=== PATIENT | female | born 1930 | race African-American/Black ===

== ENCOUNTER 2017-04-18 20:00 | Emergency (ER) | payer MEDICARE, MEDICAID ==
[~2017-04-18] VITALS: Ht 162.6 cm; Wt 47.0 kg
[~2017-04-18 20:00] MED LIST: ASPI-1035 PO; CARV6.2548 PO; CLON0.1T PO; HYDR25TA PO; ISOS1TAB PO; OLME40TA12 PO; PRIM50TA31 PO
[2017-04-18] MEDS ORDERED: HYDROCODONE/ACETAMINOPHEN 5/325MG TABLET PO ONE (20:30)
[2017-04-18] MEDS ORDERED: CLONIDINE 0.1MG TABLET PO ONE (20:30)
[2017-04-18 21:01] VITALS: BP 157/87
== END 2017-04-18 21:21 | disposition home or self-care (01) ==
LOC: ER 20:01
DX: K04.7 Periapical abscess without sinus (principal); I25.10 Atherosclerotic heart disease of native coronary artery without angina pectoris; I10 Essential (primary) hypertension; Z88.2 Allergy status to sulfonamides; Z95.1 Presence of aortocoronary bypass graft; Z95.0 Presence of cardiac pacemaker
CPT/HCPCS: 99283

== ENCOUNTER 2017-06-24 12:48 | Observation (INO) | payer MEDICARE, MEDICAID ==
[~2017-06-24] VITALS: Ht 162.6 cm; Wt 59.9 kg
[~2017-06-24 12:48] MED LIST changes: -ASPI-1035 PO; +ASPI-1158 PO
[2017-06-24 14:13] LABS: EOSINOPHILS % 2.5 % (0.0-5.0); HEMATOCRIT. 31.1 % (36.0-48.0); HEMOGLOBIN. 10.5 g/dL (12.0-16.0); LYMPHOCYTES % 22.2 % (20.0-50.0); MEAN CORPUSCULAR VOLUME 92.2 fL (81.0-99.0); MEAN PLATELET VOLUME 8.7 fl (7.4-10.4); MONOCYTES % 9.4 % (2.0-8.0); NEUTROPHILS % 64.9 % (40.0-76.0); PLATELET 98 x1000/uL (130-400); RED BLOOD CELL COUNT 3.38 mill/uL (4.2-5.4); RED CELL DISTRIBUTION WIDTH 13.8 % (11.6-14.6)
[2017-06-24 14:22] LABS: INR 1.1; PROTHROMBIN TIME 11.1 sec
[2017-06-24 14:25] LABS: TROPONIN I 0.03 ng/mL (0.00-0.04)
[2017-06-24] MEDS ORDERED: CEFTRIAXONE SODIUM 1 G/VIAL IM ONE (15:45)
[2017-06-24] MEDS ORDERED: DEXT 5%/0.45% NACL 1000ML 1,000 ML IV SCH (16:03)
[2017-06-24] MEDS ORDERED: ACETAMINOPHEN 325MG TABLET PO PRN (16:15)
[2017-06-24] MEDS ORDERED: ONDANSETRON HCL 4MG/2ML VIAL IV PRN (16:15)
[2017-06-24] MEDS ORDERED: HYDROCODONE/ACETAMINOPHEN 5/325MG TABLET PO PRN (16:15)
[2017-06-24] MEDS ORDERED: AMLODIPINE 10MG TABLET PO SCH (16:15)
[2017-06-24] MEDS ORDERED: IPRATROPIUM/ALBUTEROL 0.5-3(2.5)MG/3ML NEB INH PRN (16:15)
[2017-06-24] MEDS: CLONIDINE 0.1MG TABLET PO PRN (17:06)
[2017-06-24 22:00] VITALS: BP 198/100
[2017-06-24 22:06] LABS: TROPONIN I 0.05 ng/mL (0.00-0.04)
[2017-06-24 22:10] VITALS: BP 198/100
[2017-06-24] MEDS: ASPIRIN 81MG EC TABLET PO SCH (23:11)
[2017-06-24] MEDS: CARVEDILOL 6.25 MG TABLET PO SCH (23:12)
[2017-06-24] MEDS: ISOSORB DINIT/HYDRALAZINE HCL 20/37.5MG TABLET PO SCH (23:12)
[2017-06-24 23:41] VITALS: BP 198/94
[2017-06-24] MEDS ORDERED: HYDR-4134 PO (23:53)
[2017-06-24] MEDS ORDERED: ISOS30TA6 PO (23:53)
[2017-06-24] MEDS ORDERED: DONE5TAB33 PO (23:53)
[2017-06-24] MEDS ORDERED: OLME40TA12 PO (23:53)
[2017-06-24] MEDS ORDERED: ASPI-986 PO (23:53)
[2017-06-25] VITALS (9 sets, daily range): BP systolic 139–211; BP diastolic 72–100
[2017-06-25] MEDS ORDERED: CEFTRIAXONE 1 G PREMIX 50 ML IV SCH
[2017-06-25 00:21] LABS: CLARITY URINE CLEAR (CLEAR); COLOR URINE YELLOW (YELLOW); GLUCOSE URINE NEGATIVE (NEGATIVE); KETONES URINE NEGATIVE (NEGATIVE); LEUKOCYTE ESTERASE URINE NEGATIVE (NEGATIVE); NITRITE URINE NEGATIVE (NEGATIVE); OCCULT BLOOD URINE NEGATIVE (NEGATIVE); PROTEIN URINE 1+ (NEGATIVE); SPECIFIC GRAVITY URINE 1.021 (1.005-1.030); UROBILINOGEN URINE 0.2 E.U./dL (0.2-1.0)
[2017-06-25] MEDS: CLONIDINE 0.1MG TABLET PO PRN ×3 (05:43→17:33)
[2017-06-25] MEDS: ISOSORB DINIT/HYDRALAZINE HCL 20/37.5MG TABLET PO SCH ×2 (05:45→13:44)
[2017-06-25 06:02] LABS: EOSINOPHILS % 3.8 % (0.0-5.0); HEMATOCRIT. 29.9 % (36.0-48.0); HEMOGLOBIN. 10.1 g/dL (12.0-16.0); LYMPHOCYTES % 33.7 % (20.0-50.0); MEAN CORPUSCULAR HEMOGLOBIN 31.4 pg (28.0-32.0); MEAN CORPUSCULAR VOLUME 92.6 fL (81.0-99.0); MEAN PLATELET VOLUME 8.7 fl (7.4-10.4); MONOCYTES % 12.4 % (2.0-8.0); NEUTROPHILS % 49.1 % (40.0-76.0); PLATELET 94 x1000/uL (130-400); RED BLOOD CELL COUNT 3.23 mill/uL (4.2-5.4); RED CELL DISTRIBUTION WIDTH 13.7 % (11.6-14.6)
[2017-06-25 06:31] LABS: T4 FREE 0.78 ng/dL (0.76-1.46)
[2017-06-25 06:40] LABS: TROPONIN I 0.05 ng/mL (0.00-0.04)
[2017-06-25] MEDS ORDERED: ENOXAPARIN 40MG/0.4ML SYR SUBCUT SCH (09:00)
[2017-06-25] MEDS: CARVEDILOL 6.25 MG TABLET PO SCH (09:21)
[2017-06-25] MEDS: ASPIRIN 81MG EC TABLET PO SCH (09:39)
[2017-06-25] MEDS ORDERED: LOSARTAN POTASSIUM 50 MG TABLET PO NR (19:45)
[2017-06-25] MEDS ORDERED: ATORVASTATIN CALCIUM 10MG TABLET PO SCH (21:00)
== END 2017-06-25 22:05 | disposition home or self-care (01) ==
LOC: ER 12:48 → 6WST 15:36 → INTOOBSV 15:36 → EDBEDREQ 15:51 → ENRESERV 20:25 → 6WST 22:53
PROVIDERS: ADMIT Internal Medicine; ATTEND Internal Medicine
DX: R53.1 Weakness (principal); R55 Syncope and collapse; I16.0 Hypertensive urgency; R63.8 Other symptoms and signs concerning food and fluid intake; E78.00 Pure hypercholesterolemia, unspecified; I11.0 Hypertensive heart disease with heart failure; I25.10 Atherosclerotic heart disease of native coronary artery without angina pectoris; I25.5 Ischemic cardiomyopathy; I50.9 Heart failure, unspecified; I65.29 Occlusion and stenosis of unspecified carotid artery; I70.1 Atherosclerosis of renal artery; I73.9 Peripheral vascular disease, unspecified; N28.9 Disorder of kidney and ureter, unspecified; Z86.73 Personal history of transient ischemic attack (TIA), and cerebral infarction without residual deficits; Z95.0 Presence of cardiac pacemaker; Z95.1 Presence of aortocoronary bypass graft; Z95.5 Presence of coronary angioplasty implant and graft
CPT/HCPCS: 36415; 71010; 78582; 80048; 80061; 81001; 82550; 83735; 83880; 84439; 84443; 84484; 85025; 85379; 85610; 87077; 87086; 87186; 93005; 93306; 93880; 93970; 96361; 96365; 99285; A9540; A9558; G0378; J0696

== ENCOUNTER 2017-12-28 12:13 | Observation (INO) | payer MEDICARE, MEDICAID ==
[~2017-12-28] VITALS: Ht 165.1 cm; Wt 59.9 kg
[~2017-12-28 12:13] MED LIST changes: +ASPI-986 PO; +DONE5TAB33 PO; +HYDR-4134 PO; +ISOS30TA6 PO
[2017-12-28] MEDS ORDERED: NITROGLYCERIN OINT 1GM/INCH UDPKT TD STA (12:47)
[2017-12-28] MEDS ORDERED: ASPIRIN 81MG TABLET PO STA (12:47)
[2017-12-28] MEDS ORDERED: SODIUM CHLORIDE 0.9% 1000ML BAG (SEPSIS BOLUS) IV ONE (13:00)
[2017-12-28] MEDS ORDERED: ADENOSINE 3 MG/ML 2ML VIAL IV ONE ×2 (13:00)
[2017-12-28] MEDS ORDERED: OSELTAMIVIR 75MG CAPSULE PO ONE (13:15)
[2017-12-28] MEDS ORDERED: METOPROLOL TARTRATE 25MG TABLET PO ONE (13:15)
[2017-12-28 13:30] LABS: BASOPHILS % 0.9 % (0.0-2.0); EOSINOPHILS % 2.4 % (0.0-5.0); HEMATOCRIT. 35.1 % (36.0-48.0); HEMOGLOBIN. 11.6 g/dL (12.0-16.0); LYMPHOCYTES % 29.1 % (20.0-50.0); MEAN CORPUSCULAR HEMOGLOBIN 30.8 pg (28.0-32.0); MEAN CORPUSCULAR VOLUME 93.1 fL (81.0-99.0); MEAN PLATELET VOLUME 8.3 fl (7.4-10.4); MONOCYTES % 10.8 % (2.0-8.0); NEUTROPHILS % 56.8 % (40.0-76.0); PLATELET 126 x1000/uL (130-400); RED BLOOD CELL COUNT 3.77 mill/uL (4.2-5.4); RED CELL DISTRIBUTION WIDTH 13.8 % (11.6-14.6)
[2017-12-28 13:39] LABS: INR 1.1; PARTIAL THROMBOPLASTIN TIME 25.7 sec (23.4-31.0)
[2017-12-28 13:41] LABS: CHLORIDE 109 mEq/L (98-107)
[2017-12-28 13:46] LABS: TROPONIN I 0.71 ng/mL (0.00-0.04)
[2017-12-28 13:47] LABS: D-DIMER 5.23 mg/L FEU (<0.50)
[2017-12-28] MEDS ORDERED: ENOXAPARIN 80MG/0.8ML SYR SUBCUT ONE (14:15)
[2017-12-28] MEDS ORDERED: CLONIDINE 0.2MG TABLET PO ONE (15:15)
[2017-12-28] MEDS ORDERED: IPRATROPIUM BROMIDE (0.02%) 0.5MG/2.5ML NEB HHN STA (15:31)
[2017-12-28] MEDS ORDERED: ALBUTEROL (0.083%) 2.5MG/3ML NEB HHN STA (15:31)
[2017-12-28] MEDS ORDERED: FUROSEMIDE 40MG/4ML VIAL IVP ONE (16:15)
[2017-12-28 17:00] VITALS: BP 151/78
[2017-12-28] MEDS ORDERED: EZET10TA26 PO (18:10)
[2017-12-28] MEDS ORDERED: ISOS1TAB PO (18:14)
[2017-12-28 18:28] VITALS: BP 151/76
[2017-12-28] MEDS ORDERED: HYDROCODONE/ACETAMINOPHEN 5/325MG TABLET PO PRN (19:00)
[2017-12-28] MEDS ORDERED: TEMAZEPAM 15MG CAPSULE PO PRN (19:15)
[2017-12-28] MEDS: PANTOPRAZOLE 40MG DR TABLET PO SCH (19:50)
[2017-12-28] MEDS: FUROSEMIDE 40MG/4ML VIAL IVP SCH (19:50)
[2017-12-28 20:00] VITALS: BP 163/86
[2017-12-28] MEDS: ENOXAPARIN 30MG/0.3ML SYR SUBCUT SCH (20:11)
[2017-12-28] MEDS: CARVEDILOL 6.25 MG TABLET PO SCH (20:12)
[2017-12-28] MEDS: HYDRALAZINE HCL 50MG TABLET PO SCH (20:12)
[2017-12-28] MEDS: LOSARTAN POTASSIUM 50 MG TABLET PO SCH (20:13)
[2017-12-28] MEDS: ATORVASTATIN CALCIUM 20MG TABLET PO SCH (20:13)
[2017-12-28] MEDS: ALBUTEROL (0.083%) 2.5MG/3ML NEB HHN SCH (22:04)
[2017-12-29] VITALS: BP 167/84
[2017-12-29] MEDS: ALBUTEROL (0.083%) 2.5MG/3ML NEB HHN SCH ×6 (01:02→21:25)
[2017-12-29 04:00] VITALS: BP 169/88
[2017-12-29] MEDS: PANTOPRAZOLE 40MG DR TABLET PO SCH (06:20)
[2017-12-29 07:13] LABS: BASOPHILS % 0.9 % (0.0-2.0); HEMATOCRIT. 31.7 % (36.0-48.0); HEMOGLOBIN. 10.8 g/dL (12.0-16.0); LYMPHOCYTES % 30.9 % (20.0-50.0); MEAN CORPUSCULAR HEMOGLOBIN 31.8 pg (28.0-32.0); MEAN CORPUSCULAR VOLUME 93.2 fL (81.0-99.0); MONOCYTES % 14.8 % (2.0-8.0); NEUTROPHILS % 50.4 % (40.0-76.0); PLATELET 111 x1000/uL (130-400); RED BLOOD CELL COUNT 3.41 mill/uL (4.2-5.4); RED CELL DISTRIBUTION WIDTH 13.8 % (11.6-14.6)
[2017-12-29 08:00] VITALS: BP 172/96
[2017-12-29] MEDS: LOSARTAN POTASSIUM 50 MG TABLET PO SCH ×2 (08:14→16:05)
[2017-12-29] MEDS: CARVEDILOL 6.25 MG TABLET PO SCH (08:14)
[2017-12-29] MEDS: ASPIRIN 81MG TABLET PO SCH (08:20)
[2017-12-29 08:53] LABS: CHLORIDE 108 mEq/L (98-107); HDL CHOLESTEROL 81 mg/dL (40-59); LDL CHOLESTEROL 113 mg/dL (5-100)
[2017-12-29] MEDS: FUROSEMIDE 40MG/4ML VIAL IVP SCH (09:17)
[2017-12-29] MEDS: HYDRALAZINE HCL 50MG TABLET PO SCH ×2 (09:17→20:28)
[2017-12-29 09:59] LABS: TROPONIN I 0.51 ng/mL (0.00-0.04)
[2017-12-29 12:00] VITALS: BP 146/81
[2017-12-29 15:56] VITALS: BP 186/93
[2017-12-29] MEDS ORDERED: CLONIDINE 0.2MG TABLET PO PRN (19:45)
[2017-12-29 20:00] VITALS: BP 184/99
[2017-12-29] MEDS: CARVEDILOL 12.5MG TABLET PO SCH (20:28)
[2017-12-29] MEDS: ATORVASTATIN CALCIUM 20MG TABLET PO SCH (20:28)
[2017-12-29] MEDS: ENOXAPARIN 30MG/0.3ML SYR SUBCUT SCH (20:30)
[2017-12-30] VITALS: BP 168/85
[2017-12-30] MEDS: ALBUTEROL (0.083%) 2.5MG/3ML NEB HHN SCH ×4 (00:45→12:45)
[2017-12-30 04:00] VITALS: BP 182/100
[2017-12-30] MEDS: HYDRALAZINE HCL 50MG TABLET PO SCH (08:12)
[2017-12-30] MEDS: CARVEDILOL 12.5MG TABLET PO SCH (08:13)
[2017-12-30] MEDS: LOSARTAN POTASSIUM 50 MG TABLET PO SCH (08:13)
[2017-12-30 08:19] VITALS: BP 101/60
[2017-12-30 08:38] VITALS: BP 128/74
[2017-12-30] MEDS: FUROSEMIDE 40MG/4ML VIAL IVP SCH (08:41)
[2017-12-30] MEDS: ASPIRIN 81MG TABLET PO SCH (08:42)
[2017-12-30] MEDS ORDERED: AMIODARONE HCL 200 MG TABLET PO SCH (09:00)
[2017-12-30] MEDS ORDERED: FAMOTIDINE 20MG TABLET PO SCH (09:00)
[2017-12-30 12:15] VITALS: BP 103/61
[2017-12-30 12:41] VITALS: BP 103/61
== END 2017-12-30 15:15 | disposition home or self-care (01) ==
LOC: ER 12:35 → 8WST 14:23 → INTOOBSV 14:23 → EDBEDREQ 14:27 → ENRESERV 15:57
PROVIDERS: ADMIT Internal Medicine; ATTEND Internal Medicine
DX: I25.10 Atherosclerotic heart disease of native coronary artery without angina pectoris (principal); I11.0 Hypertensive heart disease with heart failure; I50.9 Heart failure, unspecified; I25.5 Ischemic cardiomyopathy; E78.5 Hyperlipidemia, unspecified; R62.7 Adult failure to thrive; I48.91 Unspecified atrial fibrillation; Z95.0 Presence of cardiac pacemaker; Z95.1 Presence of aortocoronary bypass graft; Z95.810 Presence of automatic (implantable) cardiac defibrillator
CPT/HCPCS: 36415; 71045; 71275; 80053; 80061; 83605; 83880; 84443; 84484; 85025; 85379; 85610; 85730; 87040; 87804; 93005; 94640; 94664; 96361; 96372; 96374; 96375; 96376; 99291; G0378; J0153; J1650; J1940; J7030; J7611; Q9967

== ENCOUNTER 2018-03-09 12:25 | Inpatient (IN) | payer MEDICARE, MEDICAID ==
[~2018-03-09] VITALS: Ht 165.1 cm; Wt 66.3 kg
[~2018-03-09 12:25] MED LIST changes: -ASPI-1158 PO; +EZET10TA26 PO; -HYDR25TA PO
[2018-03-09] MEDS ORDERED: SODIUM CHLORIDE 0.9% 1,000 ML IV ONE (13:01)
[2018-03-09 13:24] LABS: BASOPHILS % 0.9 % (0.0-2.0); EOSINOPHILS % 2.6 % (0.0-5.0); HEMATOCRIT. 33.5 % (36.0-48.0); HEMOGLOBIN. 11.5 g/dL (12.0-16.0); LYMPHOCYTES % 23.2 % (20.0-50.0); MEAN CORPUSCULAR HEMOGLOBIN 31.9 pg (28.0-32.0); MEAN CORPUSCULAR VOLUME 92.7 fL (81.0-99.0); MEAN PLATELET VOLUME 8.3 fl (7.4-10.4); MONOCYTES % 8.4 % (2.0-8.0); NEUTROPHILS % 64.9 % (40.0-76.0); PLATELET 128 x1000/uL (130-400); RED BLOOD CELL COUNT 3.61 mill/uL (4.2-5.4)
[2018-03-09 13:26] LABS: CHLORIDE 108 mEq/L (98-107)
[2018-03-09 13:28] LABS: INR 1.1; PARTIAL THROMBOPLASTIN TIME 25.3 sec (23.4-31.0); PROTHROMBIN TIME 11.3 sec (9.4-11.6)
[2018-03-09 13:37] LABS: CREATINE KINASE MB FRACTION 1.3 ng/mL (0.5-3.6)
[2018-03-09] MEDS ORDERED: FURO40TA5 PO (14:05)
[2018-03-09] MEDS ORDERED: FAMO20TA8 PO (14:06)
[2018-03-09] MEDS ORDERED: AMIO100T4 PO (14:07)
[2018-03-09] MEDS ORDERED: LEVOFLOXACIN 750MG PREMIX 150 ML IV ONE (14:45)
[2018-03-09] MEDS ORDERED: ASPIRIN 325MG EC TABLET PO ONE (14:45)
[2018-03-09] MEDS ORDERED: CLONIDINE 0.1MG TABLET PO PRN (15:15)
[2018-03-09] MEDS ORDERED: ACETAMINOPHEN 325MG TABLET PO PRN (16:00)
[2018-03-09] MEDS ORDERED: MORPHINE SULFATE 4 MG/ML CPJ (NOT FOR IM USE) IV PRN (16:00)
[2018-03-09] MEDS ORDERED: DIPHENHYDRAMINE 50MG/ML VIAL IV PRN (16:00)
[2018-03-09] MEDS ORDERED: DOCUSATE SODIUM 100MG CAPSULE PO PRN (16:00)
[2018-03-09] MEDS ORDERED: TRAMADOL 50MG TABLET PO PRN (16:00)
[2018-03-09] MEDS ORDERED: GUAIFENESIN 200MG/10ML SUGAR FREE UDC PO PRN (16:00)
[2018-03-09] MEDS ORDERED: NITROGLYCERIN 0.4MG TABLET SL SL PRN (16:00)
[2018-03-09] MEDS ORDERED: MAGNESIUM/ALUMINUM HYDROXIDE/SIMETHICONE 30ML UDC PO PRN (16:00)
[2018-03-09] MEDS ORDERED: IPRATROPIUM/ALBUTEROL 0.5-3(2.5)MG/3ML NEB INH PRN (16:00)
[2018-03-09] MEDS ORDERED: NA PHOS,M-B/NA PHOS,DI-BA ENEMA 118ML PR PRN (16:00)
[2018-03-09] MEDS ORDERED: ZOLPIDEM TARTRATE 5MG TABLET PO PRN (16:00)
[2018-03-09] MEDS ORDERED: ONDANSETRON HCL 4MG/2ML VIAL IV PRN (16:00)
[2018-03-09 17:08] LABS: VITAMIN B12 SERUM 133 pg/mL (211-911)
[2018-03-09 17:10] LABS: FOLIC ACID (FOLATE) SERUM > 20.00 ng/mL (>5.38)
[2018-03-09 17:17] LABS: CLARITY URINE CLOUDY (CLEAR); COLOR URINE YELLOW (YELLOW); KETONES URINE NEGATIVE (NEGATIVE); LEUKOCYTE ESTERASE URINE TRACE (NEGATIVE); NITRITE URINE NEGATIVE (NEGATIVE); OCCULT BLOOD URINE NEGATIVE (NEGATIVE); PROTEIN URINE NEGATIVE (NEGATIVE); SPECIFIC GRAVITY URINE 1.018 (1.005-1.030); UROBILINOGEN URINE 0.2 E.U./dL (0.2-1.0)
[2018-03-09 17:25] LABS: *AMPHETAMINES SCREEN URINE NEGATIVE (NEGATIVE); *BARBITURATES SCREEN URINE PRESUMTIVE POSITIVE (NEGATIVE); *BENZODIAZEPINES SCREEN URINE NEGATIVE (NEGATIVE); *COCAINE SCREEN URINE NEGATIVE (NEGATIVE)
[2018-03-09 17:26] LABS: CANNABINOID URINE SCREEN NEGATIVE (NEGATIVE); METHADONE URINE SCREEN NEGATIVE (NEGATIVE); OPIATES URINE SCREEN NEGATIVE (NEGATIVE); PHENCYCLIDINE URINE SCREEN NEGATIVE (NEGATIVE)
[2018-03-09] MEDS: CLONIDINE 0.1MG TABLET PO PRN (18:18)
[2018-03-09 22:00] VITALS: BP 156/91
[2018-03-09 22:10] VITALS: BP 156/91
[2018-03-09] MEDS: DONEPEZIL HCL 10MG TABLET PO SCH (22:55)
[2018-03-09] MEDS: CARVEDILOL 6.25 MG TABLET PO SCH (22:55)
[2018-03-10] VITALS: BP_SYST 142; BP_SYST 143; BP_DIAS 73
[2018-03-10 00:05] LABS: CREATINE KINASE MB FRACTION 1.4 ng/mL (0.5-3.6)
[2018-03-10 04:00] VITALS: BP 185/85
[2018-03-10] MEDS: CLONIDINE 0.1MG TABLET PO PRN (05:37)
[2018-03-10 08:00] VITALS: BP 185/84
[2018-03-10] MEDS: CARVEDILOL 6.25 MG TABLET PO SCH ×2 (09:28→16:04)
[2018-03-10] MEDS: ENOXAPARIN 30MG/0.3ML SYR SUBCUT SCH (09:28)
[2018-03-10] MEDS: AMIODARONE HCL 200 MG TABLET PO SCH (09:28)
[2018-03-10] MEDS: EZETIMIBE 10MG TABLET PO SCH (09:28)
[2018-03-10] MEDS: FAMOTIDINE 20MG TABLET PO SCH (09:30)
[2018-03-10] MEDS: ASPIRIN 325MG TABLET PO SCH (09:32)
[2018-03-10 12:00] VITALS: BP_SYST 143; BP_SYST 157; BP_SYST 162; BP_DIAS 72; BP_DIAS 75
[2018-03-10 16:00] VITALS: BP_SYST 186; BP_SYST 187; BP_SYST 191; BP_DIAS 85; BP_DIAS 86; BP_DIAS 90
[2018-03-10] MEDS: LOSARTAN POTASSIUM 50 MG TABLET PO SCH (16:04)
[2018-03-10 16:23] LABS: BASOPHILS % 0.9 % (0.0-2.0); EOSINOPHILS % 3.2 % (0.0-5.0); HEMATOCRIT. 33.4 % (36.0-48.0); HEMOGLOBIN. 11.4 g/dL (12.0-16.0); LYMPHOCYTES % 28.7 % (20.0-50.0); MEAN CORPUSCULAR HEMOGLOBIN 31.9 pg (28.0-32.0); MEAN CORPUSCULAR VOLUME 93.5 fL (81.0-99.0); MEAN PLATELET VOLUME 8.5 fl (7.4-10.4); MONOCYTES % 14.5 % (2.0-8.0); NEUTROPHILS % 52.7 % (40.0-76.0); PLATELET 115 x1000/uL (130-400); RED BLOOD CELL COUNT 3.57 mill/uL (4.2-5.4); RED CELL DISTRIBUTION WIDTH 14.1 % (11.6-14.6)
[2018-03-10 20:00] VITALS: BP 197/101
[2018-03-10] MEDS: DONEPEZIL HCL 10MG TABLET PO SCH (22:22)
[2018-03-11] VITALS: BP 172/85
[2018-03-11 04:00] VITALS: BP 170/76
[2018-03-11 07:33] LABS: BASOPHILS % 0.8 % (0.0-2.0); EOSINOPHILS % 3.9 % (0.0-5.0); HEMOGLOBIN. 10.6 g/dL (12.0-16.0); LYMPHOCYTES % 30.9 % (20.0-50.0); MEAN CORPUSCULAR HEMOGLOBIN 31.8 pg (28.0-32.0); MEAN CORPUSCULAR VOLUME 92.6 fL (81.0-99.0); MEAN PLATELET VOLUME 8.9 fl (7.4-10.4); MONOCYTES % 13.5 % (2.0-8.0); NEUTROPHILS % 50.9 % (40.0-76.0); PLATELET 100 x1000/uL (130-400); RED BLOOD CELL COUNT 3.35 mill/uL (4.2-5.4); RED CELL DISTRIBUTION WIDTH 14.1 % (11.6-14.6)
[2018-03-11 08:00] VITALS: BP_SYST 191; BP_SYST 199; BP_SYST 209; BP_DIAS 83; BP_DIAS 86; BP_DIAS 87
[2018-03-11] MEDS: AMIODARONE HCL 200 MG TABLET PO SCH (09:16)
[2018-03-11] MEDS: CARVEDILOL 6.25 MG TABLET PO SCH (09:16)
[2018-03-11] MEDS: LOSARTAN POTASSIUM 50 MG TABLET PO SCH (09:17)
[2018-03-11] MEDS: ASPIRIN 325MG TABLET PO SCH (09:17)
[2018-03-11] MEDS: EZETIMIBE 10MG TABLET PO SCH (09:17)
[2018-03-11] MEDS: FAMOTIDINE 20MG TABLET PO SCH (09:21)
[2018-03-11] MEDS: ENOXAPARIN 30MG/0.3ML SYR SUBCUT SCH (09:22)
[2018-03-11] MEDS: CLONIDINE 0.1MG TABLET PO PRN (11:32)
[2018-03-11 12:00] VITALS: BP 169/96
[2018-03-11 12:27] VITALS: BP 112/65
== END 2018-03-11 13:30 | disposition home or self-care (01) | DRG 73 ==
LOC: ER 12:38 → 5WST 14:46 → EDBEDREQ 14:50 → SUPCPDRO 15:47 → ENRESERV 20:49
PROVIDERS: ADMIT Internal Medicine; ATTEND Internal Medicine
DX: G90.8 Other disorders of autonomic nervous system (principal); N17.0 Acute kidney failure with tubular necrosis; N39.0 Urinary tract infection, site not specified; D63.8 Anemia in other chronic diseases classified elsewhere; I11.0 Hypertensive heart disease with heart failure; I50.9 Heart failure, unspecified; R62.7 Adult failure to thrive; E78.00 Pure hypercholesterolemia, unspecified; E78.5 Hyperlipidemia, unspecified; F03.90 Unspecified dementia, unspecified severity, without behavioral disturbance, psychotic disturbance, mood disturbance, and anxiety; I25.10 Atherosclerotic heart disease of native coronary artery without angina pectoris; I25.5 Ischemic cardiomyopathy; I70.1 Atherosclerosis of renal artery; I73.9 Peripheral vascular disease, unspecified; Z86.73 Personal history of transient ischemic attack (TIA), and cerebral infarction without residual deficits; Z90.710 Acquired absence of both cervix and uterus; Z95.1 Presence of aortocoronary bypass graft; Z95.810 Presence of automatic (implantable) cardiac defibrillator; Z88.2 Allergy status to sulfonamides; Z79.82 Long term (current) use of aspirin; Z79.899 Other long term (current) drug therapy; Z82.49 Family history of ischemic heart disease and other diseases of the circulatory system
CPT/HCPCS: 36415; 70450; 71045; 76770; 80048; 80053; 80061; 80305; 81003; 82550; 82553; 82607; 82746; 83036; 83540; 83550; 83605; 83735; 83880; 84484; 85025; 85610; 85730; 87040; 87086; 93005; 93306; 93970; 97162; 97166; J1650; J1956; J7030

== ENCOUNTER 2018-10-15 12:34 | Emergency (ER) | payer MEDICARE, MEDICAID ==
[~2018-10-15] VITALS: Ht 162.6 cm; Wt 58.0 kg
[~2018-10-15 12:34] MED LIST changes: +AMIO100T4 PO; +FAMO20TA8 PO; +FURO40TA5 PO; +OLME40TA11 PO; -OLME40TA12 PO
[2018-10-15] MEDS ORDERED: ONDANSETRON HCL 4MG/2ML INJ IV NR (13:13)
[2018-10-15] MEDS ORDERED: SODIUM CHLORIDE 0.9% 1,000 ML IV NR (13:13)
[2018-10-15] MEDS ORDERED: MORPHINE SULFATE 4 MG/ML CPJ (NOT FOR IM USE) IV NR (13:13)
[2018-10-15 14:39] LABS: CLARITY URINE CLOUDY (CLEAR); COLOR URINE YELLOW (YELLOW); KETONES URINE NEGATIVE (NEGATIVE); LEUKOCYTE ESTERASE URINE 1+ (NEGATIVE); NITRITE URINE NEGATIVE (NEGATIVE); OCCULT BLOOD URINE NEGATIVE (NEGATIVE); PROTEIN URINE NEGATIVE (NEGATIVE); SPECIFIC GRAVITY URINE 1.006 (1.005-1.030); UROBILINOGEN URINE 0.2 E.U./dL (0.2-1.0)
[2018-10-15 15:40] LABS: BASOPHILS % 0.9 % (0.0-2.0); EOSINOPHILS % 1.5 % (0.0-5.0); HEMATOCRIT. 35.6 % (36.0-48.0); LYMPHOCYTES % 19.9 % (20.0-50.0); MEAN CORPUSCULAR HEMOGLOBIN 32.1 pg (28.0-32.0); MEAN CORPUSCULAR VOLUME 94.9 fL (81.0-99.0); MEAN PLATELET VOLUME 9.2 fl (7.4-10.4); MONOCYTES % 8.8 % (2.0-8.0); NEUTROPHILS % 68.9 % (40.0-76.0); PLATELET 125 x1000/uL (130-400); RED BLOOD CELL COUNT 3.75 mill/uL (4.2-5.4); RED CELL DISTRIBUTION WIDTH 13.9 % (11.6-14.6)
[2018-10-15 15:48] LABS: CHLORIDE 106 mEq/L (98-107)
[2018-10-15] MEDS ORDERED: CEFTRIAXONE 2 G PREMIX 50 ML IV ONE (16:30)
[2018-10-15] MEDS ORDERED: ACETAMINOPHEN 325MG TABLET PO ONE (16:30)
[2018-10-15] MEDS ORDERED: HYDRALAZINE 20MG/ML VIAL IV NR (18:31)
[2018-10-15 19:41] VITALS: BP 152/67
[2018-10-15] MEDS ORDERED: HYDRALAZINE 20MG/ML VIAL IV PRN (22:00)
== END 2018-10-15 19:43 | disposition short-term general hospital (02) ==
LOC: ER 12:34 → EDBEDREQ 17:08 → SUPCPDRO 17:24 → ER 19:43 → ENRESERV 20:19 → CANBEDREQ 10-16 10:07
DX: R53.1 Weakness (principal); N12 Tubulo-interstitial nephritis, not specified as acute or chronic; R10.9 Unspecified abdominal pain; I11.0 Hypertensive heart disease with heart failure; I50.9 Heart failure, unspecified; I25.10 Atherosclerotic heart disease of native coronary artery without angina pectoris; Z88.2 Allergy status to sulfonamides; Z95.0 Presence of cardiac pacemaker; Z95.1 Presence of aortocoronary bypass graft; Z79.82 Long term (current) use of aspirin
CPT/HCPCS: 36415; 71045; 74176; 80053; 81003; 83605; 83880; 84145; 84484; 85025; 87040; 87086; 93005; 96365; 96375; 99285; J0360; J0696; J2405; J2270

== ENCOUNTER 2018-12-10 22:34 | Inpatient (IN) | payer MEDICARE, MEDICAID ==
[~2018-12-10] VITALS: Ht 165.1 cm; Wt 65.8 kg
[2018-12-10] MEDS ORDERED: MORPHINE SULFATE 4 MG/ML CPJ (NOT FOR IM USE) IV STA (23:06)
[2018-12-10 23:50] LABS: HEMATOCRIT. 33.6 % (36.0-48.0); HEMOGLOBIN. 11.3 g/dL (12.0-16.0); LYMPHOCYTES % 24.6 % (20.0-50.0); MEAN CORPUSCULAR HEMOGLOBIN 31.8 pg (28.0-32.0); MEAN CORPUSCULAR VOLUME 94.7 fL (81.0-99.0); MEAN PLATELET VOLUME 8.9 fl (7.4-10.4); MONOCYTES % 11.8 % (2.0-8.0); NEUTROPHILS % 60.6 % (40.0-76.0); PLATELET 117 x1000/uL (130-400); RED BLOOD CELL COUNT 3.55 mill/uL (4.2-5.4); RED CELL DISTRIBUTION WIDTH 14.3 % (11.6-14.6)
[2018-12-10 23:53] LABS: PROTHROMBIN TIME 10.5 sec (9.1-11.1)
[2018-12-10 23:55] LABS: CHLORIDE 103 mEq/L (98-107)
[2018-12-11] MEDS ORDERED: MORPHINE SULFATE 4 MG/ML CPJ (NOT FOR IM USE) IV ONE (00:30)
[2018-12-11 01:08] LABS: CLARITY URINE CLEAR (CLEAR); COLOR URINE YELLOW (YELLOW); KETONES URINE NEGATIVE (NEGATIVE); LEUKOCYTE ESTERASE URINE NEGATIVE (NEGATIVE); NITRITE URINE NEGATIVE (NEGATIVE); OCCULT BLOOD URINE NEGATIVE (NEGATIVE); PH URINE 5.5 (4.5-8.0); PROTEIN URINE NEGATIVE (NEGATIVE); SPECIFIC GRAVITY URINE 1.014 (1.005-1.030); UROBILINOGEN URINE 0.2 E.U./dL (0.2-1.0)
[2018-12-11] MEDS ORDERED: CARVEDILOL 6.25 MG TABLET PO ONE (01:30)
[2018-12-11 04:17] VITALS: BP 156/62
[2018-12-11 08:00] VITALS: BP 139/61
[2018-12-11] MEDS: MORPHINE SULFATE 4 MG/ML CPJ (NOT FOR IM USE) IV PRN (09:56)
[2018-12-11 12:00] VITALS: BP 131/48
[2018-12-11] MEDS ORDERED: GUAIFENESIN 200MG/10ML SUGAR FREE UDC PO PRN (12:00)
[2018-12-11] MEDS ORDERED: ONDANSETRON HCL 4MG/2ML INJ IV PRN (12:00)
[2018-12-11] MEDS ORDERED: DOCUSATE SODIUM 100MG CAPSULE PO PRN (12:00)
[2018-12-11] MEDS ORDERED: ENOXAPARIN 40MG/0.4ML SYR SUBCUT SCH (12:00)
[2018-12-11] MEDS ORDERED: MAGNESIUM/ALUMINUM HYDROXIDE/SIMETHICONE 30ML UDC PO PRN (12:00)
[2018-12-11] MEDS ORDERED: IPRATROPIUM/ALBUTEROL 0.5-3(2.5)MG/3ML NEB INH PRN (12:00)
[2018-12-11] MEDS ORDERED: ACETAMINOPHEN 650MG SUPP PR PRN (12:00)
[2018-12-11] MEDS ORDERED: ACETAMINOPHEN 650MG/20.3ML UDC GT PRN (12:00)
[2018-12-11] MEDS: SODIUM CHLORIDE 0.9% 1,000 ML IV SCH (12:15)
[2018-12-11] MEDS: ENOXAPARIN 30MG/0.3ML SYR SUBCUT SCH (12:52)
[2018-12-11] MEDS: SODIUM CHLORIDE 0.9% INJ 3ML FLUSH IVF SCH ×2 (12:53→22:36)
[2018-12-11] MEDS ORDERED: AMIODARONE HCL 100 MG PO SCH (13:30)
[2018-12-11] MEDS: AMIODARONE HCL 200 MG TABLET PO SCH (14:23)
[2018-12-11] MEDS: HYDROCODONE/ACETAMINOPHEN 10/325MG TABLET PO PRN ×3 (14:23→22:37)
[2018-12-11] MEDS: EZETIMIBE 10MG TABLET PO SCH (14:24)
[2018-12-11] MEDS: CARVEDILOL 6.25 MG TABLET PO SCH ×2 (14:24→22:30)
[2018-12-11 15:44] LABS: CLARITY URINE CLEAR (CLEAR); COLOR URINE YELLOW (YELLOW); KETONES URINE NEGATIVE (NEGATIVE); LEUKOCYTE ESTERASE URINE 1+ (NEGATIVE); NITRITE URINE NEGATIVE (NEGATIVE); OCCULT BLOOD URINE NEGATIVE (NEGATIVE); PROTEIN URINE NEGATIVE (NEGATIVE); SPECIFIC GRAVITY URINE 1.017 (1.005-1.030); UROBILINOGEN URINE 0.2 E.U./dL (0.2-1.0)
[2018-12-11 16:00] VITALS: BP 149/57
[2018-12-11] MEDS ORDERED: SODIUM CHLORIDE 0.9% 1,000 ML IV SCH (16:30)
[2018-12-11 16:54] LABS: BASOPHILS % 0.6 % (0.0-2.0); EOSINOPHILS % 1.3 % (0.0-5.0); HEMATOCRIT. 27.7 % (36.0-48.0); HEMOGLOBIN. 9.3 g/dL (12.0-16.0); LYMPHOCYTES % 15.3 % (20.0-50.0); MEAN CORPUSCULAR HEMOGLOBIN 31.9 pg (28.0-32.0); MEAN CORPUSCULAR VOLUME 94.7 fL (81.0-99.0); MEAN PLATELET VOLUME 9.4 fl (7.4-10.4); MONOCYTES % 12.2 % (2.0-8.0); NEUTROPHILS % 70.6 % (40.0-76.0); PLATELET 85 x1000/uL (130-400); RED BLOOD CELL COUNT 2.92 mill/uL (4.2-5.4); RED CELL DISTRIBUTION WIDTH 14.3 % (11.6-14.6)
[2018-12-11 17:00] LABS: CHLORIDE 105 mEq/L (98-107)
[2018-12-11] MEDS: PRIMIDONE 50MG TABLET PO SCH (17:31)
[2018-12-11 20:00] VITALS: BP 160/75
[2018-12-11] MEDS: DONEPEZIL HCL 10MG TABLET PO SCH (22:31)
[2018-12-11] MEDS: FAMOTIDINE 20MG TABLET PO SCH (22:31)
[2018-12-12] VITALS: BP 129/66
[2018-12-12 04:00] VITALS: BP 190/82
[2018-12-12] MEDS: HYDROCODONE/ACETAMINOPHEN 10/325MG TABLET PO PRN (06:02)
[2018-12-12] MEDS: CLONIDINE 0.1MG TABLET PO PRN (06:05)
[2018-12-12] MEDS: SODIUM CHLORIDE 0.9% INJ 3ML FLUSH IVF SCH ×2 (06:06→14:00)
[2018-12-12 08:00] VITALS: BP 143/75
[2018-12-12 09:08] LABS: BASOPHILS % 0.9 % (0.0-2.0); EOSINOPHILS % 3.4 % (0.0-5.0); HEMATOCRIT. 29.8 % (36.0-48.0); HEMOGLOBIN. 9.9 g/dL (12.0-16.0); LYMPHOCYTES % 13.6 % (20.0-50.0); MEAN CORPUSCULAR HEMOGLOBIN 31.7 pg (28.0-32.0); MEAN CORPUSCULAR VOLUME 95.3 fL (81.0-99.0); MEAN PLATELET VOLUME 9.2 fl (7.4-10.4); MONOCYTES % 10.5 % (2.0-8.0); NEUTROPHILS % 71.6 % (40.0-76.0); PLATELET 86 x1000/uL (130-400); RED BLOOD CELL COUNT 3.13 mill/uL (4.2-5.4)
[2018-12-12 09:37] LABS: CHLORIDE 103 mEq/L (98-107)
[2018-12-12 09:47] LABS: LDL CHOLESTEROL 60 mg/dL (5-100)
[2018-12-12 09:48] LABS: HDL CHOLESTEROL 91 mg/dL (40-59)
[2018-12-12] MEDS ORDERED: VANCOMYCIN HCL 500 MG/VIAL ONE (10:13)
[2018-12-12] MEDS ORDERED: MIDAZOLAM HCL 2 MG/2 ML VIAL ONE (10:47)
[2018-12-12] MEDS ORDERED: SUCCINYLCHOLINE CHLORIDE 200MG/10ML IV ONE (10:47)
[2018-12-12] MEDS ORDERED: GLYCOPYRROLATE 0.2 MG/ML 2ML VIAL ONE (10:47)
[2018-12-12] MEDS ORDERED: ONDANSETRON HCL 4MG/2ML INJ ONE (10:47)
[2018-12-12] MEDS ORDERED: METOCLOPRAMIDE HCL 10MG/2ML VIAL ONE (10:47)
[2018-12-12] MEDS ORDERED: PROPOFOL 200MG/20ML VIAL IV ONE (10:47)
[2018-12-12] MEDS ORDERED: FENTANYL CITRATE/PF 50MCG/ML 2ML VIAL ONE (10:47)
[2018-12-12] MEDS ORDERED: LIDOCAINE HCL/PF 1% 10 MG/ML 5ML VIAL ONE (10:47)
[2018-12-12] MEDS ORDERED: CEFAZOLIN SODIUM 1000MG/VIAL ONE (10:48)
[2018-12-12] MEDS ORDERED: SODIUM CHLORIDE 0.9% 1,000 ML IV ONE (11:32)
[2018-12-12] MEDS ORDERED: HYDROMORPHONE HCL/PF 2MG/ML CPJ IV PRN (11:45)
[2018-12-12] MEDS ORDERED: ONDANSETRON HCL 4MG/2ML INJ IV PRN (11:45)
[2018-12-12] MEDS: ENOXAPARIN 30MG/0.3ML SYR SUBCUT SCH (13:00)
[2018-12-12 16:00] VITALS: BP 146/65
[2018-12-12] MEDS: EZETIMIBE 10MG TABLET PO SCH (16:11)
[2018-12-12] MEDS: AMIODARONE HCL 200 MG TABLET PO SCH (16:12)
[2018-12-12] MEDS: CARVEDILOL 6.25 MG TABLET PO SCH ×2 (16:12→23:08)
[2018-12-12] MEDS: CEFAZOLIN 1000MG PREMIX 50 ML IV SCH (16:44)
[2018-12-12] MEDS: PRIMIDONE 50MG TABLET PO SCH (17:35)
[2018-12-12 20:00] VITALS: BP 147/67
[2018-12-12] MEDS: DONEPEZIL HCL 10MG TABLET PO SCH (23:09)
[2018-12-12] MEDS: FAMOTIDINE 20MG TABLET PO SCH (23:10)
[2018-12-12] MEDS: SODIUM CHLORIDE 0.9% 1,000 ML IV SCH (23:16)
[2018-12-13] VITALS: BP 138/61
[2018-12-13] MEDS: CEFAZOLIN 1000MG PREMIX 50 ML IV SCH
[2018-12-13 04:00] VITALS: BP 157/67
[2018-12-13 05:44] LABS: BASOPHILS % 0.5 % (0.0-2.0); EOSINOPHILS % 1.2 % (0.0-5.0); HEMATOCRIT. 24.1 % (36.0-48.0); LYMPHOCYTES % 10.2 % (20.0-50.0); MEAN CORPUSCULAR HEMOGLOBIN 31.9 pg (28.0-32.0); MEAN PLATELET VOLUME 9.8 fl (7.4-10.4); MONOCYTES % 10.5 % (2.0-8.0); NEUTROPHILS % 77.6 % (40.0-76.0); PLATELET 78 x1000/uL (130-400); RED BLOOD CELL COUNT 2.51 mill/uL (4.2-5.4); RED CELL DISTRIBUTION WIDTH 14.1 % (11.6-14.6)
[2018-12-13 08:00] VITALS: BP 167/66
[2018-12-13] MEDS: HYDROCODONE/ACETAMINOPHEN 10/325MG TABLET PO PRN ×2 (08:28→12:52)
[2018-12-13] MEDS: EZETIMIBE 10MG TABLET PO SCH (08:29)
[2018-12-13] MEDS: CARVEDILOL 6.25 MG TABLET PO SCH ×2 (08:29→22:02)
[2018-12-13] MEDS: AMIODARONE HCL 200 MG TABLET PO SCH (08:29)
[2018-12-13 12:00] VITALS: BP 122/52
[2018-12-13] MEDS: ENOXAPARIN 30MG/0.3ML SYR SUBCUT SCH (12:52)
[2018-12-13] MEDS: SODIUM CHLORIDE 0.9% 1,000 ML IV SCH (13:32)
[2018-12-13] MEDS: SODIUM CHLORIDE 0.9% INJ 3ML FLUSH IVF SCH (13:32)
[2018-12-13 16:00] VITALS: BP 137/56
[2018-12-13] MEDS: PRIMIDONE 50MG TABLET PO SCH (17:52)
[2018-12-13] MEDS: ASPIRIN 81MG EC TABLET PO SCH (17:53)
[2018-12-13 20:00] VITALS: BP 159/65
[2018-12-13] MEDS: FAMOTIDINE 20MG TABLET PO SCH (22:02)
[2018-12-13] MEDS: ATORVASTATIN CALCIUM 20MG TABLET PO SCH (22:02)
[2018-12-13] MEDS: ACETAMINOPHEN 325MG TABLET PO PRN (22:05)
[2018-12-13] MEDS: DONEPEZIL HCL 10MG TABLET PO SCH (22:10)
[2018-12-14] VITALS (12 sets, daily range): BP systolic 113–185; BP diastolic 63–81
[2018-12-14] MEDS: ASPIRIN 81MG EC TABLET PO SCH (09:00)
[2018-12-14] MEDS: CARVEDILOL 6.25 MG TABLET PO SCH ×2 (09:07→21:37)
[2018-12-14] MEDS: HYDROCODONE/ACETAMINOPHEN 10/325MG TABLET PO PRN ×2 (11:34→15:24)
[2018-12-14 12:56] LABS: HEMATOCRIT 23.2 % (36.0-48.0); HEMOGLOBIN 7.8 g/dL (12.0-16.0)
[2018-12-14 13:08] LABS: PROTHROMBIN TIME 10.1 sec (9.1-11.1)
[2018-12-14] MEDS: SODIUM CHLORIDE 0.9% INJ 3ML FLUSH IVF SCH ×2 (13:22→21:38)
[2018-12-14] MEDS: SODIUM CHLORIDE 0.9% 1,000 ML IV SCH (13:24)
[2018-12-14] MEDS: CLONIDINE 0.1MG TABLET PO PRN (17:01)
[2018-12-14] MEDS: PRIMIDONE 50MG TABLET PO SCH (17:02)
[2018-12-14] MEDS: MORPHINE SULFATE 4 MG/ML CPJ (NOT FOR IM USE) IV PRN (21:32)
[2018-12-14] MEDS: FAMOTIDINE 20MG TABLET PO SCH (21:37)
[2018-12-14] MEDS: DONEPEZIL HCL 10MG TABLET PO SCH (21:37)
[2018-12-14] MEDS: ATORVASTATIN CALCIUM 20MG TABLET PO SCH (21:37)
[2018-12-15] VITALS: BP 162/62
[2018-12-15 04:00] VITALS: BP 175/76
[2018-12-15] MEDS: SODIUM CHLORIDE 0.9% INJ 3ML FLUSH IVF SCH ×3 (06:32→21:57)
[2018-12-15 08:00] VITALS: BP 183/80
[2018-12-15] MEDS: ASPIRIN 81MG EC TABLET PO SCH (08:59)
[2018-12-15] MEDS: CARVEDILOL 6.25 MG TABLET PO SCH (08:59)
[2018-12-15] MEDS: HYDROCODONE/ACETAMINOPHEN 5/325MG TABLET PO PRN (09:00)
[2018-12-15] MEDS ORDERED: AMLODIPINE 5MG TABLET PO SCH (11:00)
[2018-12-15 12:00] VITALS: BP 125/56
[2018-12-15 12:14] LABS: HEMATOCRIT 25.9 % (36.0-48.0); HEMOGLOBIN 8.6 g/dL (12.0-16.0); MEAN CORPUSCULAR HEMOGLOBIN 31.7 pg (28.0-32.0); MEAN CORPUSCULAR VOLUME 95.4 fL (81.0-99.0); PLATELET 101 x1000/uL (130-400); RED BLOOD CELL COUNT 2.71 mill/uL (4.2-5.4); RED CELL DISTRIBUTION WIDTH 14.2 % (11.6-14.6)
[2018-12-15 16:00] VITALS: BP_SYST 186; BP_SYST 193; BP_DIAS 82; BP_DIAS 85
[2018-12-15] MEDS: PRIMIDONE 50MG TABLET PO SCH (17:12)
[2018-12-15] MEDS: CLONIDINE 0.1MG TABLET PO SCH ×2 (17:13→21:56)
[2018-12-15 20:00] VITALS: BP 146/62
[2018-12-15] MEDS: ACETAMINOPHEN 325MG TABLET PO PRN (21:53)
[2018-12-15] MEDS: ATORVASTATIN CALCIUM 20MG TABLET PO SCH (21:54)
[2018-12-15] MEDS: FAMOTIDINE 20MG TABLET PO SCH (21:54)
[2018-12-15] MEDS: HYDRALAZINE HCL 50MG TABLET PO SCH (21:54)
[2018-12-15] MEDS: DONEPEZIL HCL 10MG TABLET PO SCH (21:54)
[2018-12-15] MEDS: CARVEDILOL 12.5MG TABLET PO SCH (21:55)
[2018-12-15] MEDS: AMLODIPINE 5MG TABLET PO SCH (21:55)
[2018-12-16] VITALS: BP 135/73
[2018-12-16 04:00] VITALS: BP 156/70
[2018-12-16] MEDS: CLONIDINE 0.1MG TABLET PO SCH ×3 (06:00→21:29)
[2018-12-16 06:39] LABS: HEMATOCRIT 25.3 % (36.0-48.0); HEMOGLOBIN 8.5 g/dL (12.0-16.0); MEAN CORPUSCULAR HEMOGLOBIN 31.7 pg (28.0-32.0); MEAN CORPUSCULAR VOLUME 94.2 fL (81.0-99.0); PLATELET 110 x1000/uL (130-400); RED BLOOD CELL COUNT 2.69 mill/uL (4.2-5.4); RED CELL DISTRIBUTION WIDTH 14.1 % (11.6-14.6)
[2018-12-16 08:00] VITALS: BP 161/68
[2018-12-16] MEDS: HYDROCODONE/ACETAMINOPHEN 5/325MG TABLET PO PRN (09:22)
[2018-12-16] MEDS: HYDRALAZINE HCL 50MG TABLET PO SCH ×2 (10:02→21:29)
[2018-12-16] MEDS: CARVEDILOL 12.5MG TABLET PO SCH ×2 (10:02→23:36)
[2018-12-16] MEDS: ASPIRIN 81MG EC TABLET PO SCH (10:02)
[2018-12-16] MEDS: AMLODIPINE 5MG TABLET PO SCH ×2 (10:02→21:30)
[2018-12-16 12:00] VITALS: BP 130/53
[2018-12-16] MEDS ORDERED: SODIUM POLYSTYRENE SULFONATE 15 G/60 ML BOT PO NR (15:30)
[2018-12-16] MEDS: PRIMIDONE 50MG TABLET PO SCH (16:00)
[2018-12-16] MEDS: CLONIDINE 0.1MG TABLET PO PRN ×2 (17:30→23:43)
[2018-12-16 17:35] VITALS: BP 171/73
[2018-12-16 20:00] VITALS: BP 148/65
[2018-12-16] MEDS: FAMOTIDINE 20MG TABLET PO SCH (21:30)
[2018-12-16] MEDS: DONEPEZIL HCL 10MG TABLET PO SCH (21:30)
[2018-12-16] MEDS: ATORVASTATIN CALCIUM 20MG TABLET PO SCH (21:30)
[2018-12-17] VITALS: BP 170/77
[2018-12-17 04:00] VITALS: BP 146/78
[2018-12-17] MEDS ORDERED: HYDRALAZINE HCL 50MG TABLET PO SCH (06:00)
[2018-12-17] MEDS: CLONIDINE 0.1MG TABLET PO SCH (06:54)
[2018-12-17 08:00] VITALS: BP_SYST 152; BP_SYST 166; BP_DIAS 72; BP_DIAS 77
[2018-12-17] MEDS: CARVEDILOL 12.5MG TABLET PO SCH (08:03)
[2018-12-17] MEDS: AMLODIPINE 5MG TABLET PO SCH (08:03)
[2018-12-17] MEDS: ASPIRIN 81MG EC TABLET PO SCH (08:03)
== END 2018-12-17 10:25 | DRG 480 ==
LOC: ER 22:34 → 6EST 12-11 00:33 → ENRESERV 12-11 00:54 → 6EST 12-11 11:40
PROVIDERS: ADMIT Internal Medicine; ATTEND Internal Medicine
PROC: 0QS636Z Reposition Right Upper Femur with Intramedullary Internal Fixation Device, Percutaneous Approach (ICD-10-PCS; principal; 2018-12-12)
PROC: 30233N1 Transfusion of Nonautologous Red Blood Cells into Peripheral Vein, Percutaneous Approach (ICD-10-PCS; 2018-12-14)
DX: S72.141A Displaced intertrochanteric fracture of right femur, initial encounter for closed fracture (principal); I50.23 Acute on chronic systolic (congestive) heart failure; N17.9 Acute kidney failure, unspecified; I13.0 Hypertensive heart and chronic kidney disease with heart failure and stage 1 through stage 4 chronic kidney disease, or unspecified chronic kidney disease; I47.1 Supraventricular tachycardia; D69.6 Thrombocytopenia, unspecified; I70.1 Atherosclerosis of renal artery; D64.9 Anemia, unspecified; F03.90 Unspecified dementia, unspecified severity, without behavioral disturbance, psychotic disturbance, mood disturbance, and anxiety; E78.5 Hyperlipidemia, unspecified; I25.10 Atherosclerotic heart disease of native coronary artery without angina pectoris; M85.80 Other specified disorders of bone density and structure, unspecified site; E87.5 Hyperkalemia; I34.0 Nonrheumatic mitral (valve) insufficiency; M19.90 Unspecified osteoarthritis, unspecified site; I25.5 Ischemic cardiomyopathy; I73.9 Peripheral vascular disease, unspecified; N18.9 Chronic kidney disease, unspecified; W01.0XXA Fall on same level from slipping, tripping and stumbling without subsequent striking against object, initial encounter; Y93.89 Activity, other specified; Y92.098 Other place in other non-institutional residence as the place of occurrence of the external cause; Y99.8 Other external cause status; Z88.2 Allergy status to sulfonamides; Z79.82 Long term (current) use of aspirin; Z79.899 Other long term (current) drug therapy; Z95.810 Presence of automatic (implantable) cardiac defibrillator; Z95.1 Presence of aortocoronary bypass graft; Z86.73 Personal history of transient ischemic attack (TIA), and cerebral infarction without residual deficits; Z82.49 Family history of ischemic heart disease and other diseases of the circulatory system; Z83.3 Family history of diabetes mellitus
CPT/HCPCS: 36415; 51702; 71045; 72192; 73502; 73522; 80048; 80061; 84484; 85014; 85018; 85027; 85049; 85384; 86850; 86900; 86920; 93005; 93306; 96374; 97110; 97162; 97166; 97530; 97535; 99285; C1713; C1769; C1893; J0330; J0690; J1650; J2250; J2270; J2405; J2704; J2765; J3010; J3370; J3490; J7030; J7040; P9016; A4315

== ENCOUNTER 2018-12-23 18:55 | Emergency (ER) | payer MEDICARE, MEDICAID ==
[~2018-12-23] VITALS: Ht 167.6 cm; Wt 70.0 kg
[~2018-12-23 18:55] MED LIST changes: -ISOS1TAB PO
[2018-12-23] MEDS ORDERED: ONDANSETRON HCL 4MG/2ML INJ IV STA (19:26)
[2018-12-23] MEDS ORDERED: MORPHINE SULFATE 4 MG/ML CPJ (NOT FOR IM USE) IV STA (19:26)
[2018-12-23] MEDS ORDERED: SODIUM CHLORIDE 0.9% 1,000 ML IV ONE (19:26)
[2018-12-23 21:03] LABS: BASOPHILS % 0.7 % (0.0-2.0); EOSINOPHILS % 2.7 % (0.0-5.0); HEMATOCRIT. 26.6 % (36.0-48.0); HEMOGLOBIN. 8.8 g/dL (12.0-16.0); LYMPHOCYTES % 13.7 % (20.0-50.0); MEAN CORPUSCULAR HEMOGLOBIN 31.5 pg (28.0-32.0); MEAN CORPUSCULAR VOLUME 95.6 fL (81.0-99.0); MEAN PLATELET VOLUME 8.4 fl (7.4-10.4); MONOCYTES % 9.3 % (2.0-8.0); NEUTROPHILS % 73.6 % (40.0-76.0); PLATELET 268 x1000/uL (130-400); RED BLOOD CELL COUNT 2.78 mill/uL (4.2-5.4); RED CELL DISTRIBUTION WIDTH 14.5 % (11.6-14.6)
[2018-12-23 21:08] LABS: CHLORIDE 107 mEq/L (98-107)
[2018-12-23 21:10] LABS: PROTHROMBIN TIME 10.4 sec (9.1-11.1)
[2018-12-23] MEDS ORDERED: ENOXAPARIN 80MG/0.8ML SYR SUBCUT ONE (22:15)
[2018-12-24 00:17] VITALS: BP 178/76
== END 2018-12-24 00:26 ==
LOC: ER 18:55 → CANBEDREQ 12-24 02:20
DX: M25.551 Pain in right hip (principal); G89.29 Other chronic pain; D63.1 Anemia in chronic kidney disease; I13.0 Hypertensive heart and chronic kidney disease with heart failure and stage 1 through stage 4 chronic kidney disease, or unspecified chronic kidney disease; N18.9 Chronic kidney disease, unspecified; I50.9 Heart failure, unspecified; I25.10 Atherosclerotic heart disease of native coronary artery without angina pectoris; R94.31 Abnormal electrocardiogram [ECG] [EKG]; Z95.1 Presence of aortocoronary bypass graft; Z96.641 Presence of right artificial hip joint; Z88.2 Allergy status to sulfonamides; Z95.0 Presence of cardiac pacemaker; Z79.82 Long term (current) use of aspirin
CPT/HCPCS: 36415; 71045; 80053; 85025; 85610; 93005; 93970; 96374; 96375; 99284; J1650; J2270; J2405; J7030

== ENCOUNTER 2019-04-25 14:28 | Inpatient (IN) | payer MEDICARE, MEDICAID ==
[~2019-04-25] VITALS: Ht 165.1 cm; Wt 54.9 kg
[~2019-04-25 14:28] MED LIST changes: +LIDOCAINE HCL/PF 1% 2ML VIAL ONE
[2019-04-25] MEDS ORDERED: SODIUM CHLORIDE 0.9% 1,000 ML IV ONE (14:30)
[2019-04-25 14:50] LABS: BASOPHILS % 2.1 % (0.0-2.0); EOSINOPHILS % 2.5 % (0.0-5.0); HEMATOCRIT. 32.8 % (36.0-48.0); HEMOGLOBIN. 11.2 g/dL (12.0-16.0); LYMPHOCYTES % 31.1 % (20.0-50.0); MEAN CORPUSCULAR HEMOGLOBIN 31.9 pg (28.0-32.0); MEAN CORPUSCULAR VOLUME 93.4 fL (81.0-99.0); MEAN PLATELET VOLUME 8.9 fl (7.4-10.4); MONOCYTES % 10.5 % (2.0-8.0); NEUTROPHILS % 53.8 % (40.0-76.0); PLATELET 144 x1000/uL (130-400); RED BLOOD CELL COUNT 3.52 mill/uL (4.2-5.4); RED CELL DISTRIBUTION WIDTH 14.3 % (11.6-14.6)
[2019-04-25] MEDS ORDERED: IOHEXOL-350 100 ML BOTTLE ONE (14:51)
[2019-04-25 14:55] LABS: CHLORIDE 113 mEq/L (98-107); INR 1.1; PARTIAL THROMBOPLASTIN TIME 24.7 sec (23.4-31.0)
[2019-04-25 15:05] LABS: ETHANOL BLOOD < 10 mg/dL
[2019-04-25 15:06] LABS: CREATINE KINASE 119 IU/L (26-192); LDL CHOLESTEROL 65 mg/dL (5-100)
[2019-04-25] MEDS ORDERED: ASPIRIN 81MG TABLET PO ONE (15:15)
[2019-04-25 15:41] LABS: BG BASE EXCESS -0.9 mmol/L (-2.0-2.0); BG CARBOXYHEMOGLOBIN 0.3 % (0.5-1.5); BG DEOXYHEMOGLOBIN 3.1 % (0.0-5.0); BG FRACTION INSPIRED OXYGEN 100; BG HCO3 ACT 23.6 mmol/L (22.0-26.0); BG OXYGEN SATURATION 96.9 % (92.0-98.5); BG OXYHEMOGLOBIN 96.6 % (94.0-97.0); BG PCO2 38.4 mmHg (35.0-45.0); BG PH 7.406 (7.350-7.450); BG PO2 92.7 mmHg (75.0-100.0); BG SAMPLE SITE RIGHT BRACHIAL; BG TOTAL HEMOGLOBIN 11.2 g/dL (12.0-18.0); BG VENT MODE MASK - NRB
[2019-04-25 16:55] VITALS: BP 149/52
[2019-04-25 17:00] VITALS: BP 161/72
[2019-04-25] MEDS ORDERED: AMLO5TAB88 MT (17:44)
[2019-04-25] MEDS ORDERED: ASPI-1158 PO (17:44)
[2019-04-25] MEDS ORDERED: ATOR20TA65 MT (17:44)
[2019-04-25] MEDS ORDERED: CLON-457 PO (17:44)
[2019-04-25 18:22] VITALS: BP 169/78
[2019-04-25] MEDS ORDERED: AMIODARONE HCL 100 MG PO SCH (19:00)
[2019-04-25] MEDS ORDERED: CLONIDINE 0.1MG TABLET PO PRN (19:00)
[2019-04-25] MEDS ORDERED: MEDICATION NOT ON FORMULARY EA (Clonidine HCl (Clonidine HCl ER) 0.1 MG) PO SCH (20:00)
[2019-04-25] MEDS ORDERED: MEDICATION NOT ON FORMULARY EA (Amlodipine Besylate 1 TAB) MT SCH (20:00)
[2019-04-25] MEDS ORDERED: ENOXAPARIN 40MG/0.4ML SYR SUBCUT SCH (21:00)
[2019-04-25] MEDS: ENOXAPARIN 30MG/0.3ML SYR SUBCUT SCH (21:00)
[2019-04-25] MEDS: ATORVASTATIN CALCIUM 20MG TABLET PO SCH (21:13)
[2019-04-25] MEDS: CARVEDILOL 6.25 MG TABLET PO SCH (21:14)
[2019-04-25] MEDS: AMLODIPINE 5MG TABLET PO SCH (21:21)
[2019-04-25] MEDS: AMIODARONE HCL 200 MG TABLET PO SCH (22:49)
[2019-04-25] MEDS: DONEPEZIL HCL 10MG TABLET PO SCH (22:50)
[2019-04-26] VITALS (11 sets, daily range): BP systolic 90–149; BP diastolic 46–77
[2019-04-26] MEDS: ASPIRIN 81MG TABLET PO SCH (08:20)
[2019-04-26] MEDS: CARVEDILOL 6.25 MG TABLET PO SCH ×2 (08:21→20:46)
[2019-04-26] MEDS: AMLODIPINE 5MG TABLET PO SCH (08:21)
[2019-04-26] MEDS: AMIODARONE HCL 200 MG TABLET PO SCH (08:22)
[2019-04-26] MEDS: LOSARTAN POTASSIUM 100 MG TABLET PO SCH (08:22)
[2019-04-26] MEDS ORDERED: OLMESARTAN MEDOXOMIL PO SCH (09:00)
[2019-04-26] MEDS ORDERED: MEDICATION NOT ON FORMULARY EA (Aspirin (Aspirin Ec) 81 MG) PO SCH (09:00)
[2019-04-26 15:49] LABS: BASOPHILS % 0.9 % (0.0-2.0); HEMATOCRIT. 32.3 % (36.0-48.0); MEAN CORPUSCULAR HEMOGLOBIN 32.2 pg (28.0-32.0); MEAN CORPUSCULAR VOLUME 94.6 fL (81.0-99.0); MEAN PLATELET VOLUME 8.6 fl (7.4-10.4); MONOCYTES % 11.3 % (2.0-8.0); NEUTROPHILS % 58.8 % (40.0-76.0); PLATELET 109 x1000/uL (130-400); RED BLOOD CELL COUNT 3.41 mill/uL (4.2-5.4); RED CELL DISTRIBUTION WIDTH 14.4 % (11.6-14.6)
[2019-04-26 15:58] LABS: CHLORIDE 112 mEq/L (98-107)
[2019-04-26] MEDS: ENOXAPARIN 30MG/0.3ML SYR SUBCUT SCH (20:46)
[2019-04-26] MEDS: ATORVASTATIN CALCIUM 20MG TABLET PO SCH (20:46)
[2019-04-26] MEDS: DONEPEZIL HCL 10MG TABLET PO SCH (20:47)
[2019-04-27] VITALS (7 sets, daily range): BP systolic 108–181; BP diastolic 59–86
[2019-04-27] MEDS: ASPIRIN 81MG TABLET PO SCH (08:59)
[2019-04-27] MEDS: AMIODARONE HCL 200 MG TABLET PO SCH (09:00)
[2019-04-27] MEDS: AMLODIPINE 5MG TABLET PO SCH (09:01)
[2019-04-27] MEDS: CARVEDILOL 6.25 MG TABLET PO SCH ×2 (09:01→20:32)
[2019-04-27] MEDS: LOSARTAN POTASSIUM 100 MG TABLET PO SCH (09:01)
[2019-04-27] MEDS: ATORVASTATIN CALCIUM 20MG TABLET PO SCH (20:29)
[2019-04-27] MEDS: ENOXAPARIN 30MG/0.3ML SYR SUBCUT SCH (20:34)
[2019-04-28] VITALS: BP 138/69
[2019-04-28 04:00] VITALS: BP 139/67
[2019-04-28 08:00] VITALS: BP 164/77
[2019-04-28] MEDS: LOSARTAN POTASSIUM 100 MG TABLET PO SCH (08:54)
[2019-04-28] MEDS: ASPIRIN 81MG TABLET PO SCH (08:54)
[2019-04-28] MEDS: AMIODARONE HCL 200 MG TABLET PO SCH (08:55)
[2019-04-28] MEDS: AMLODIPINE 5MG TABLET PO SCH (08:55)
[2019-04-28] MEDS: CARVEDILOL 6.25 MG TABLET PO SCH (08:55)
[2019-04-28 12:00] VITALS: BP 132/60
== END 2019-04-28 16:48 | disposition home or self-care (01) | DRG 312 ==
LOC: ER 14:59 → 5EST 15:20 → EDBEDREQ 15:26 → ENRESERV 15:43 → 6WST 04-26 16:57
PROVIDERS: ADMIT Internal Medicine; ATTEND Internal Medicine
PROC: 4B02XSZ Measurement of Cardiac Pacemaker, External Approach (ICD-10-PCS; principal; 2019-04-26)
DX: R55 Syncope and collapse (principal); I13.0 Hypertensive heart and chronic kidney disease with heart failure and stage 1 through stage 4 chronic kidney disease, or unspecified chronic kidney disease; R41.82 Altered mental status, unspecified; G93.89 Other specified disorders of brain; I48.91 Unspecified atrial fibrillation; I25.5 Ischemic cardiomyopathy; I50.9 Heart failure, unspecified; F03.90 Unspecified dementia, unspecified severity, without behavioral disturbance, psychotic disturbance, mood disturbance, and anxiety; E78.00 Pure hypercholesterolemia, unspecified; I25.10 Atherosclerotic heart disease of native coronary artery without angina pectoris; Z86.73 Personal history of transient ischemic attack (TIA), and cerebral infarction without residual deficits; E11.22 Type 2 diabetes mellitus with diabetic chronic kidney disease; J44.9 Chronic obstructive pulmonary disease, unspecified; Z96.649 Presence of unspecified artificial hip joint; N18.9 Chronic kidney disease, unspecified; Z88.2 Allergy status to sulfonamides; Z95.1 Presence of aortocoronary bypass graft; Z95.810 Presence of automatic (implantable) cardiac defibrillator; Z79.899 Other long term (current) drug therapy; Z79.82 Long term (current) use of aspirin
CPT/HCPCS: 36415; 36600; 70496; 71045; 80320; 82375; 82550; 82805; 82962; 83721; 83735; 83880; 84484; 86850; 86900; 93005; 93306; 96360; 99291; J1650; J3490; J7030; Q9967; G0480

== ENCOUNTER 2019-07-20 06:47 | Inpatient (IN) | payer MEDICARE, MEDICAID ==
[~2019-07-20] VITALS: Ht 162.6 cm; Wt 49.5 kg
[~2019-07-20 06:47] MED LIST changes: +AMLO5TAB88 MT; +ASPI-1158 PO; +ATOR20TA65 MT; +CLON-457 PO; -DONE5TAB33 PO; -LIDOCAINE HCL/PF 1% 2ML VIAL ONE
[2019-07-20 09:12] LABS: BASOPHILS % 1.5 % (0.0-2.0); EOSINOPHILS % 2.3 % (0.0-5.0); HEMATOCRIT. 34.8 % (36.0-48.0); HEMOGLOBIN. 11.7 g/dL (12.0-16.0); LYMPHOCYTES % 21.4 % (20.0-50.0); MEAN CORPUSCULAR HEMOGLOBIN 31.7 pg (28.0-32.0); MEAN CORPUSCULAR VOLUME 94.2 fL (81.0-99.0); MEAN PLATELET VOLUME 8.1 fl (7.4-10.4); NEUTROPHILS % 65.8 % (40.0-76.0); PLATELET 115 x1000/uL (130-400); RED CELL DISTRIBUTION WIDTH 14.3 % (11.6-14.6)
[2019-07-20 09:19] LABS: PARTIAL THROMBOPLASTIN TIME 27.5 sec (23.4-31.0); PROTHROMBIN TIME 10.4 sec (9.6-11.0)
[2019-07-20] MEDS ORDERED: GENTAMICIN SULF 40MG/ML 2ML VIAL ONE (09:37)
[2019-07-20] MEDS ORDERED: GENTAMICIN/NS IRRIGATION 500 ML IR ONE (09:38)
[2019-07-20] MEDS ORDERED: LIDOCAINE HCL 1% 20ML VIAL (Pyxis) INJ ONE (09:38)
[2019-07-20] MEDS ORDERED: ONDANSETRON HCL 4MG/2ML INJ ONE (09:49)
[2019-07-20] MEDS ORDERED: DEXAMETHASONE 4MG/ML 1ML VIAL ONE (09:49)
[2019-07-20] MEDS ORDERED: MIDAZOLAM HCL 2 MG/2 ML VIAL ONE (09:49)
[2019-07-20] MEDS ORDERED: PROPOFOL 200MG/20ML VIAL IV ONE ×2 (09:49→10:56)
[2019-07-20] MEDS ORDERED: FENTANYL CITRATE/PF 50MCG/ML 2ML VIAL ONE (09:49)
[2019-07-20] MEDS ORDERED: DONE10TA11 PO (11:00)
[2019-07-20] MEDS ORDERED: LABETALOL 5MG/ML SYR 20 MG/4 ML SYRINGE IV PRN (11:15)
[2019-07-20] MEDS ORDERED: ONDANSETRON HCL 4MG/2ML INJ IV PRN (11:15)
[2019-07-20] MEDS ORDERED: HYDROMORPHONE HCL/PF 2MG/ML CPJ IV PRN (11:15)
[2019-07-20] MEDS ORDERED: MEPERIDINE HCL/PF 25MG/ML CPJ IV PRN (11:15)
[2019-07-20] MEDS ORDERED: CLONIDINE 0.1MG TABLET PO PRN (12:30)
[2019-07-20] MEDS ORDERED: HYDRALAZINE 20MG/ML VIAL IV NR (13:00)
[2019-07-20 16:00] VITALS: BP 170/105
[2019-07-20 16:15] VITALS: BP 171/100
[2019-07-20] MEDS: HYDROCODONE/ACETAMINOPHEN 5/325MG TABLET PO PRN (17:39)
[2019-07-20 20:00] VITALS: BP 147/70
[2019-07-20] MEDS: ATORVASTATIN CALCIUM 20MG TABLET PO SCH (21:43)
[2019-07-20] MEDS: CARVEDILOL 6.25 MG TABLET PO SCH (21:43)
[2019-07-20 22:00] VITALS: BP 126/72
[2019-07-21] VITALS (13 sets, daily range): BP systolic 139–166; BP diastolic 53–77
[2019-07-21] MEDS: HYDROCODONE/ACETAMINOPHEN 5/325MG TABLET PO PRN ×2 (05:11→16:10)
[2019-07-21 06:15] LABS: BASOPHILS % 1.2 % (0.0-2.0); EOSINOPHILS % 0.6 % (0.0-5.0); HEMATOCRIT. 31.4 % (36.0-48.0); HEMOGLOBIN. 10.7 g/dL (12.0-16.0); LYMPHOCYTES % 13.3 % (20.0-50.0); MEAN CORPUSCULAR HEMOGLOBIN 31.7 pg (28.0-32.0); MEAN CORPUSCULAR VOLUME 93.3 fL (81.0-99.0); MONOCYTES % 9.4 % (2.0-8.0); NEUTROPHILS % 75.5 % (40.0-76.0); PLATELET 105 x1000/uL (130-400); RED BLOOD CELL COUNT 3.36 mill/uL (4.2-5.4); RED CELL DISTRIBUTION WIDTH 14.4 % (11.6-14.6)
[2019-07-21] MEDS: AMLODIPINE 5MG TABLET PO SCH (08:19)
[2019-07-21] MEDS: CARVEDILOL 6.25 MG TABLET PO SCH ×2 (08:20→21:33)
[2019-07-21] MEDS: DONEPEZIL HCL 10MG TABLET PO SCH (08:20)
[2019-07-21] MEDS: AMIODARONE HCL 200 MG TABLET PO SCH (08:20)
[2019-07-21] MEDS: ASPIRIN 325MG TABLET PO SCH (08:20)
[2019-07-21] MEDS ORDERED: ASPIRIN 81MG EC TABLET PO SCH (09:00)
[2019-07-21 17:10] LABS: PLATELET ESTIMATE DECREASED
[2019-07-21] MEDS: ATORVASTATIN CALCIUM 20MG TABLET PO SCH (21:33)
[2019-07-22] VITALS (7 sets, daily range): BP systolic 138–153; BP diastolic 55–96
[2019-07-22] MEDS: HYDROCODONE/ACETAMINOPHEN 5/325MG TABLET PO PRN (06:40)
[2019-07-22] MEDS: CARVEDILOL 6.25 MG TABLET PO SCH (09:09)
[2019-07-22] MEDS: DONEPEZIL HCL 10MG TABLET PO SCH (09:09)
[2019-07-22] MEDS: ASPIRIN 325MG TABLET PO SCH (09:09)
[2019-07-22] MEDS: AMIODARONE HCL 200 MG TABLET PO SCH (09:09)
[2019-07-22] MEDS: AMLODIPINE 5MG TABLET PO SCH (09:10)
== END 2019-07-22 12:52 | disposition home or self-care (01) | DRG 245 ==
LOC: CARD 06:47 → 3WST 06:48
PROVIDERS: ADMIT Internal Medicine Clinical Cardiac Electrophysiology; ATTEND Internal Medicine Clinical Cardiac Electrophysiology
PROC: 0JPT0PZ Removal of Cardiac Rhythm Related Device from Trunk Subcutaneous Tissue and Fascia, Open Approach (ICD-10-PCS; principal; 2019-07-20)
PROC: 0JH608Z Insertion of Defibrillator Generator into Chest Subcutaneous Tissue and Fascia, Open Approach (ICD-10-PCS; 2019-07-20)
DX: I47.2 Ventricular tachycardia (principal); I50.22 Chronic systolic (congestive) heart failure; I25.5 Ischemic cardiomyopathy; I48.0 Paroxysmal atrial fibrillation; I11.0 Hypertensive heart disease with heart failure; I25.10 Atherosclerotic heart disease of native coronary artery without angina pectoris; E78.5 Hyperlipidemia, unspecified; Z87.891 Personal history of nicotine dependence; Z95.1 Presence of aortocoronary bypass graft; Z95.810 Presence of automatic (implantable) cardiac defibrillator; I25.2 Old myocardial infarction; Z87.81 Personal history of (healed) traumatic fracture; Z79.899 Other long term (current) drug therapy; Z88.0 Allergy status to penicillin; Z88.2 Allergy status to sulfonamides
CPT/HCPCS: 33263; 36415; 71045; 80048; 93005; 93641; C1882; J0360; J1100; J1580; J2250; J2405; J2704; J3010; J3490